=== PATIENT | male | born 1965 | race Caucasian/White ===

== ENCOUNTER → 2025-03-19 | Outpatient (CLI) | payer OTHER, SELFPAY ==
--- NOTE | 2025-03-19 08:51 | US_ITS ---
PROCEDURE: ABD LIMITED W/ ELASTOGRAPHY REASON FOR EXAM: ABN LIVER FUNCTION TESTS COMPARISON: None. TECHNIQUE: Right upper quadrant abdominal ultrasound. Cristela ElastQ Imaging shear wave elastography for non-invasive assessment of liver tissue stiffness. Cristela EPIQ Elite. FINDINGS: LIVER: Length: 15.4 cm Echotexture: Diffusely echogenic suggesting fatty infiltration Contour: Normal Lesions: None identified Elastography: EQI Med: 9.0 kPa EQI Med Justo: 1.71 m/s IQR/Med: 13.9-24.7 %* GALLBLADDER: Normal COMMON BILE DUCT: Normal measuring 6 mm.. PANCREAS: Normal Visualized portions of the right kidney are unremarkable. No right upper quadrant ascites. US/ABD Limited w/ Elastography IMPRESSION: Hepatic steatosis, with [id number] hepatic fibrosis. Reference Values: SRU <1.37 m/s (5.7kPa): No to mild fibrosis 1.37 m/s - 2.2 m/s: Moderate to severe fibrosis >2.2 m/s (15kPa): Significant fibrosis / cirrhosis METAVIR Score F2 or higher: 1.34 m/s (5.7kPa) F3 or higher: 1.55 m/s (7.3kPa) F4: 1.80 m/s (10kPa) * If the IQR/Med is >30%, the variance in the measurements is a large and the a ccuracy of the measurement may be in question. Reading Location: [id number]
--- OUTSIDE RECORDS SUMMARY | 2025-03-19 08:56 | XMS RPT_ITS | CCD ---
Author Organization [facility] Care Team Providers Care Database Design Analyst Name Role Phone Required, No Pcp Unavailable Unavailable Saad Renee Unavailable Unavailable Joe, Karymomo Unavailable Unavailable Víctor, Ms. Saad Tomas Attending Lee Ann Diaz, Ms. Romapumamalcolm Primary Care Unavailab jose Diaz, Ms. Romapumamalcolm Referring Unavailab Ced Hernández Admitting Unavailable Ced Rodriguez Attending Unavailable Joe, Ms. Karyanne Primary Care Unavailab SHARONA Law Attending Unavailabl e JOE, KARYANNE Referring Unavailable JOE, KARYANNE Primary Care Unavailable LI LANDAVERDE Attending Unavailable JOSE, KARYANNE Primary Care Unavailable Jose, Karyanne Referring Unavailable Jose Karyanne Attending Unavailable Jose, Karyanne Primary Care Unavailable Medications Current Medications Medication Drug Class(es) Dates Sig (Normalized) Sig (Original) calcium carbonate 500 mg chewable tablet (1 source) take 1 tablet by nabeel th once daily Tums 500 mg oral tablet, chewable ; 1 tab(s) orally once a day Quantity: 0 Refills: 0 Ordered: 02-Apr-2022 Lisset Talbert Generic Substitution Allowed Completed/Discontinued Medications Medication Drug Class(es) Dates Sig (Normalized) Sig (Original) NEGATED: Highlighted row has not occurred!No Current Medications (1 source) No Current Medic ations Problems Active Problems Problem Classification Problem Date Documented Da te Episodic/Chronic Diabetes mellitus without complication (2 sources) Hyperglycemia, unspecified; Translations: [Hyperglycemia, unspecified] Onset: 12-13-2022 Episodic Immunizations and screening for infectious disease (1 source) Patient encounter status; Translations: [Special screening examination for other specified viral diseases] 09-05-2021 Episodic Other screening for suspected conditions (not mental disorders or infectious disease) (5 sources) Encounter for screening for malignant neoplasm of colon; Translations: [Abnormal results of liver function studies] Onset: 04-05-2022 Episodic Other upper respiratory infections (2 sources) Acute upper respiratory infection; Translations: [Acute upper respiratory infections of unspecified site] 09-05-2021 Episodic Unclassified (2 sources) NO TASTE OR SMELL DIZZY 09-05-2021 Comment on above: NO TASTE OR SMELL DI ZZY Unclassified (1 source) Encounter for screening for COVID-19 09-05-2021 Unclassified (2 sources) WORK PHYSICAL 04-11-2022 Comment on above: WORK PHYSICAL Unclassified (1 source) Physical exam 04-11-2022 Past or Other Problems Problem Classification Problem Date Documented Da te Episodic/Chronic Cardiac dysrhythmias (2 sources) Palpitations; Translations: [Palpitations] Onset: 06-23-2023 Episodic Other lower respiratory disease (2 sources) Shortness of breath; Translations: [Shortness of breath] Onset: 06-23-2023 Episodic Results Test Name Value Interpretation Reference Range Facility Troponin I.cardiac panelon 1 Tropinin I.cardiac panel High sensitivity method 3 ng/L Normal 0-20 [facility] Comment on above: Order Comment: Less than 99th percentile of normal range cutoff- Female and children under 18 years old <14 ng/L; Male <21 ng/L: Negative Repeat testing should be performed if clinically indicated. Female and children under 18 years old 14-50 ng/L; Male 21-50 ng/L: Consistent with possible cardiac damage and possible increased clinical risk. Serial measurements may help to assess extent of myocardial damage. >50 ng/L: Consistent with cardiac damage, increased clinical risk and myocardial infarction. Serial measurements may help assess extent of myocardial damage. NOTE: Children less than 1 year old may have higher baseline troponin levels and results should be interpreted in conjunction with the overall clinical context. NOTE: Troponin I testing is performed using a different testing methodology at [facility] than at other legacy [facility]. Direct result comparisons should only be made within the same method. Performed By: #### 8 9577-1 #### WONG YAIMA ([id number]) [facility] ([facility]) [address] [place] [address] CBC W Auto Differential pane l (Bld)on 06-23-2023 Basophils (Bld) [#/Vol] 0.06 x10*3/uL Normal 0.00-0.10 [facility] Comment on above: Performed By: #### 5 7021-8 #### JUDITH ERWIN ([id number]) [facility] ([facility]) [address] [place] [address] 65391 Basophils/100 WBC (Bld) 0.7 % Normal 0.0-2.0 [facility] Comment on above: Performed By: #### 5 7021-8 #### JUDITH ERWIN ([id number]) [facility] ([facility]) [address] [place] [address] 49235 Eosinophils (Bld) [#/Vol] 0.35 x10*3/uL Normal 0.00-0.70 [facility] Comment on above: Performed By: #### 5 7021-8 #### JUDITH ERWIN ([id number]) [facility] ([facility]) [address] [place] [address] 24182 Eosinophils/100 WBC (Bld) 4.3 % Normal 0.0-6.0 [facility] Comment on above: Performed By: #### 5 7021-8 #### JUDITH ERWIN ([id number]) [facility] ([facility]) [address] [place] [address] 86122 Erythrocyte distribution width (RBC) [Ratio] 12.4 % Normal 11.5-14.5 [facility] Comment on above: Performed By: #### 5 7021-8 #### JUDITH ERWIN ([id number]) [facility] ([facility]) [address] [place] [address] 87373 Hematocrit (Bld) [Volume fraction] 43.7 % Normal 41.0-52.0 [facility] Comment on above: Performed By: #### 5 7021-8 #### JUDITH ERWIN ([id number]) [facility] ([facility]) [address] [place] [address] 14166 Hemoglobin (Bld) [Mass/Vol] 14.9 g/dL Normal 13.5-17.5 [facility] Comment on above: Performed By: #### 5 7021-8 #### JUDITH ERWIN ([id number]) [facility] ([facility]) [address] [place] [address] 84033 Immature granulocytes (Bld) [#/Vol] 0.03 x10*3/uL Normal 0.00-0.70 [facility] Comment on above: Performed By: #### 5 7021-8 #### JUDITH ERWIN ([id number]) [facility] ([facility]) [address] [place] [address] 74172 Immature granulocytes/100 WBC (Bld) 0.4 % Normal 0.0-0.9 [facility] Comment on above: Result Comment: Alycia ture Granulocyte Count (IG) includes promyelocytes, myelocytes and metamyelocytes but does not include bands. Percent differential counts (%) should be interpreted in the context of the absolute cell counts (cells/UL). Performed By: #### 5 7021-8 #### JUDITH ERWIN ([id number]) [facility] ([facility]) [address] [place] [address] 81222 Lymphocytes (Bld) [#/Vol] 2.16 x10*3/uL Normal 1.20-4.80 [facility] Comment on above: Performed By: #### 5 7021-8 #### JUDITH ERWIN ([id number]) [facility] ([facility]) [address] [place] [address] 09736 Lymphocytes/100 WBC (Bld) 26.8 % Normal 13.0-44.0 [facility] Comment on above: Performed By: #### 5 7021-8 #### JUDITH ERWIN ([id number]) [facility] ([facility]) [address] [place] [address] 20431 MCH (RBC) [Entitic mass] 28.9 pg Normal 26.0-34.0 [facility] Comment on above: Performed By: #### 5 7021-8 #### JUDITH ERWIN ([id number]) [facility] ([facility]) [address] [place] [address] 04700 MCHC (RBC) [Mass/Vol] 34.1 g/dL Normal 32.0-36.0 [facility] Comment on above: Performed By: #### 5 7021-8 #### JUDITH ERWIN ([id number]) [facility] ([facility]) [address] [place] [address] 34157 MCV (RBC) [Entitic vol] 85 fL Normal 80-100 [facility] Comment on above: Performed By: #### 5 7021-8 #### JUDITH ERWIN ([id number]) [facility] ([facility]) [address] [place] [address] 58313 Monocytes (Bld) [#/Vol] 0.83 x10*3/uL Normal 0.10-1.00 [facility] Comment on above: Performed By: #### 5 7021-8 #### JUDITH ERWIN ([id number]) [facility] ([facility]) [address] [place] [address] 53296 Monocytes/100 WBC (Bld) 10.3 % Normal 2.0-10.0 [facility] Comment on above: Performed By: #### 5 7021-8 #### JUDITH ERWIN ([id number]) [facility] ([facility]) [address] [place] [address] 82920 Neutrophils (Bld) [#/Vol] 4.62 x10*3/uL Normal 1.20-7.70 [facility] Comment on above: Result Comment: Perc ent differential counts (%) should be interpreted in the context of the absolute cell counts (cells/uL). Performed By: #### 5 7021-8 #### JUDITH ERWIN ([id number]) [facility] ([facility]) [address] [place] [address] 39582 Neutrophils/100 WBC (Bld) 57.5 % Normal 40.0-80.0 [facility] Comment on above: Performed By: #### 5 7021-8 #### JUDITH ERWIN ([id number]) [facility] ([facility]) [address] [place] [address] 43637 Nucleated RBC/100 WBC (Bld) [Ratio] 0.0 /100 WBCs Normal 0.0-0.0 [facility] Comment on above: Performed By: #### 5 7021-8 #### JUDITH ERWIN ([id number]) [facility] ([facility]) [address] [place] [address] 07213 Platelet mean volume (Bld) [Entitic vol] 9.0 fL Normal 7.5-11.5 [facility] Comment on above: Performed By: #### 5 7021-8 #### JUDITH ERWIN ([id number]) [facility] ([facility]) [address] [place] [address] 72162 Platelets (Bld) [#/Vol] 212 x10*3/uL Normal 150-450 [facility] Comment on above: Performed By: #### 5 7021-8 #### JUDITH ERWIN ([id number]) [facility] ([facility]) [address] [place] [address] 26208 RBC (Bld) [#/Vol] 5.15 x10*6/uL Normal 4.50-5.90 [facility] Comment on above: Performed By: #### 5 7021-8 #### JUDITH ERWIN ([id number]) [facility] ([facility]) [address] [place] [address] 56265 WBC (Bld) [#/Vol] 8.1 x10*3/uL Normal 4.4-11.3 [facility] Comment on above: Performed By: #### 5 7021-8 #### JUDITH ERWIN ([id number]) [facility] ([facility]) [address] [place] [address] 59463 Comprehensive metabolic 2000 panelon 06-23-2023 Albumin BCP dye [Mass/Vol] 4.6 g/dL Normal 3.4-5.0 [facility] Comment on above: Performed By: #### 2 4323-8 #### JUDITH ERWIN ([id number]) [facility] ([facility]) [address] [place] [address] 23547 ALP [Catalytic activity/Vol] 52 U/L Normal 33-120 [facility] Comment on above: Performed By: #### 2 4323-8 #### JUDITH ERWIN ([id number]) [facility] ([facility]) [address] [place] [address] ALT With P-5'-P [Catalytic activity/Vol] 21 U/L Normal 10-52 [facility] Comment on above: Result Comment: Donna ents treated with Sulfasalazine may generate falsely decreased results for ALT. Performed By: #### 2 4323-8 #### JUDITH ERWIN ([id number]) [facility] ([facility]) [address] [place] [address] Anion gap [Moles/Vol] 10 mmol/L Normal 10-20 [facility] Comment on above: Performed By: #### 2 4322-8 #### JUDITH ERWIN ([id number]) [facility] ([facility]) [address] [place] [address] AST With P-5'-P [Catalytic activity/Vol] 14 U/L Normal 9-39 [facility] Comment on above: Performed By: #### 2 4322-8 #### JUDITH ERWIN ([id number]) [facility] ([facility]) [address] [place] [address] Bilirubin [Mass/Vol] 0.4 mg/dL Normal 0.0-1.2 [facility] Comment on above: Performed By: #### 2 432-8 #### JUDITH ERWIN ([id number]) [facility] ([facility]) [address] [place] [address] 37767 Calcium [Mass/Vol] 9.7 mg/dL Normal 8.6-10.3 [facility] Comment on above: Performed By: #### 2 4323-8 #### JUDITH ERWIN ([id number]) [facility] ([facility]) [address] [place] [address] Chloride [Moles/Vol] 103 mmol/L Normal 98-107 [facility] Comment on above: Performed By: #### 2 4323-8 #### JUDITH ERWIN ([id number]) [facility] ([facility]) [address] [place] [address] CO2 [Moles/Vol] 31 mmol/L Normal 21-[address] [facility] Comment on above: Performed By: #### 2 4323-8 #### JUDITH ERWIN ([id number]) [facility] ([facility]) [facility] [place] [address] Creatinine [Mass/Vol] 1.14 mg/dL Normal 0.50-1.30 [facility] Comment on above: Performed By: #### 2 4323-8 #### JUDITH ERWIN ([id number]) [facility] ([facility]) [address] [place] [address] 93751 GFR/1.73 sq M.predicted MDRD (S/P/Bld) [Vol rate/Area] 75 mL/min/1.73m*2 Normal >60 [facility] Comment on above: Result Comment: Calc ulations of estimated GFR are performed using the 2020 CKD-EPI Study Refit equation without the race variable for the IDMS-Traceable Creatinine Methods. https://jasn.asnjournals.org/content/early//ASN.80717722 88 Performed By: #### 2 4323-8 #### JUDITH ERWIN ([id number]) [facility] ([facility]) [address] [place] [address] 21123 Glucose [Mass/Vol] 102 mg/dL High 74-99 [facility] Comment on above: Performed By: #### 2 4323-8 #### JUDITH ERWIN ([id number]) [facility] ([facility]) [address] [place] [address] 36348 Potassium [Moles/Vol] 3.6 mmol/L Normal 3.5-5.3 [facility] Comment on above: Performed By: #### 2 4323-8 #### JUDITH ERWIN ([id number]) [facility] ([facility]) [facility] [place] [address] Protein [Mass/Vol] 6.8 g/dL Normal 6.4-8.2 [facility] Comment on above: Performed By: #### 2 4323-8 #### JUDITH ERWIN ([id number]) [facility] ([facility]) [address] [place] [address] 52514 Sodium [Moles/Vol] 140 mmol/L Normal 136-145 [facility] Comment on above: Performed By: #### 2 4323-8 #### JUDITH ERWIN ([id number]) [facility] ([facility]) [address] [place] [address] 22700 Urea nitrogen [Mass/Vol] 18 mg/dL Normal 6-23 [facility] Comment on above: Performed By: #### 2 4323-8 #### JUDITH ERWIN ([id number]) [facility] ([facility]) [address] [place] [address] 45501 Magnesiumon 06-23-2023 Magnesium [Mass/Vol] 2.03 mg/dL Normal 1.60-2.40 [facility] Comment on above: Performed By: #### 1 9123-9 #### JUDITH ERWIN ([id number]) [facility] ([facility]) [address] [place] [address] 80388 Troponin I.cardiac panelon 1 Tropinin I.cardiac panel High sensitivity method 3 ng/L Normal 0-20 [facility] Comment on above: Order Comment: Less than 99th percentile of normal range cutoff- Female and children under 18 years old <14 ng/L; Male <21 ng/L: Negative Repeat testing should be performed if clinically indicated. Female and children under 18 years old 14-50 ng/L; Male 21-50 ng/L: Consistent with possible cardiac damage and possible increased clinical risk. Serial measurements may help to assess extent of myocardial damage. >50 ng/L: Consistent with cardiac damage, increased clinical risk and myocardial infarction. Serial measurements may help assess extent of myocardial damage. NOTE: Children less than 1 year old may have higher baseline troponin levels and results should be interpreted in conjunction with the overall clinical context. NOTE: Troponin I testing is performed using a different testing methodology at [facility] than at other [facility]. Direct result comparisons should only be made within the same method. Performed By: #### 8 9577-1 #### WONG ANA CRISTINALI ([id number]) [facility] ([facility]) [address] [place] [address] XR CHEST 1 VIEWon 06-23-2023 XR CHEST 1 VIEW Interpreted By: Luanne Ibrahim, STUDY: XR CHEST 1 VIEW; 06/23/2023 11:29 pm INDICATION: Signs/Symptoms:Chest Pain. COMPARISON: None. ACCESSION NUMBER(S): [id number] ORDERING CLINICIAN: LI LANDAVERDE FINDINGS: Multiple overlying leads are present. CARDIOMEDIASTINAL SILHOUETTE: Cardiomediastinal silhouette is normal in size and configuration. LUNGS: No consolidation, pleural effusion or pneumothorax. ABDOMEN: No remarkable upper abdominal findings. BONES: No acute osseous abnormality. IMPRESSION: No acute cardiopulmonary process. MACRO: None Signed by: Luanne Ibrahim 06/23/2023 11:55 PM Dictation workstation: [id number] [facility] Provider Note - ED v3on 03-23 Provider Note - ED v3 Provider Note: Chart Review: ED NOTES ED NOTES: Presents for work physical. No previous joint injuries/surgeries. No chronic illnesses or daily meds. No constitutional complaints. HISTORY OF PRESENTING ILLNESS JAVAN is a 56 year old Male and was seen by me at 11-Apr-2022 12:30. Triage Information: Most recent Vital Sign Value Date PAST MEDICAL HISTORY ALLERGIES/INTOLERANCES : No Known Allergies HEALTH HISTORY: No documented data. OUTPATIENT MEDICATIONS: Home Medications Review Status for Reconciliation: N/A Med Status: Patient Currently Takes Medications Drug Name: Tums 500 mg oral tablet, chewable Instructions: 1 tab(s) orally once a day SIGNIFICANT EVENTS: No documented data. REVIEW OF SYSTEMS All other systems reviewed and are negative REVIEW OF SYSTEMS: Comments See HPI PHYSICAL EXAM CONSTITUTIONAL: Well appearing, well nourished, awake, alert, oriented to person, place, time/situation and in no apparent distress. HENMT: Airway patent, ears with clear tympanic membranes bilaterally. Nasal mucosa clear. Mouth with normal mucosa. Throat has no vesicles, no oropharyngeal exudates and uvula is midline. Face with no lymph node enlargement. EYES: Clear bilaterally, pupils equal, round and reactive to light. CARDIOVASCULAR: Normal rate, regular rhythm. Heart sounds S1, S2. No murmurs, rubs or gallops. PMI non-displaced. RESPIRATORY: Breath sounds clear and equal bilaterally. GASTROINTESTINAL: Abdomen soft, non-distended, no rebound, no guarding. Bowel sounds normal in all 4 quadrants. GENITOURINARY: No discharge, no lesions. MUSCULOSKELETAL: Spine appears normal, range of motion is not limited, no muscle or joint tenderness. NEUROLOGICAL: Alert and oriented, no focal deficits, no motor or sensory deficits. SKIN: Skin normal color for race, warm, dry and intact. No evidence of trauma. PSYCHIATRIC: Alert and oriented to person, place, time/situation. normal mood and affect. No apparent risk to self or others. HEME/LYMPH: No adenopathy or splenomegaly. No cervical, supraclavicular or inguinal lymphadenopathy. CRITICAL CARE VITAL SIGNS: T PRBP SpO2O2(LPM) %FiO2 Method 11-Apr-2022 12:24:[id number] 1 97RA MDM MDM/ED COURSE: Discussed Findings with: patient Data Reviewed: vital signs DISPOSITION Diagnosis/Annotation: ED Dx Name:Physical exam Code:Z00.00 Disposition: discharged Type: home CONSULT CRITICAL CARE TIME Is this a critically ill patient: no Electronic Signatures: Saad Renee (FIELD SALES AGENT-QUALITY ASSURANCE CALIBRATOR) (Signed 11-Apr-2022 12:44) Authored: ED Notes, HPI, PMH, ROS, PE, Results/Vital Signs, MDM/ED Course, Clinical Impression, Attestation, Chart Review, Scores Last Updated: 11-Apr-2022 12:44 by Saad Renee (FIELD SALES AGENT-QUALITY ASSURANCE CALIBRATOR) [facility] Colonoscopyon 04-05-2022 Colonoscopy PATIENTNAME Patient Name: Javan Degroot EXAMDATE Procedure Date: 04/05/2022 10:33 AM PATIENTID PATIENTACCOUNTNUM PATIENTDOB Date of : 1965 ADMITTYPE Admit Type: Outpatient PATIENTROOM Site: [facility] 1 ETHNICITY Ethnicity: Not or RACE Race: White PROVDR Attending MD: Ced Rodriguez DO ENDOPROCEDURENAME Procedure: Colonoscopy INDICATION Indications: Screening for colorectal malignant neoplasm PRIMARYPROVIDER Providers: Ced Rodriguez DO (Doctor), Eduarda Corley RN (Nurse), Ravindra Christian RN (Nurse) EDREFPROVIDER Referring: Doctor Unknown CURRENT_MEDS Medicines: Midazolam 7.5 mg IV, Meperidine 50 mg IV COMPLIC Complications: No immediate complications. ENDOPROCEDURETEXT Procedure: Pre-Anesthesia Assessment: - Prior to the procedure, a History and Physical was performed, and patient medications and allergies were reviewed. The patient is competent. The risks and benefits of the procedure and the sedation options and risks were discussed with the patient. All questions were answered and informed consent was obtained. Patient identification and proposed procedure were verified by the physician in the pre-procedure area. Mental Status Examination: alert and oriented. Airway Examination: normal oropharyngeal airway and neck mobility. Respiratory Examination: clear to auscultation. CV Examination: normal. Prophylactic Antibiotics: The patient does not require prophylactic antibiotics. Prior Anticoagulants: The patient has taken no anticoagulant or antiplatelet agents. ASA Grade Assessment: II - A patient with mild systemic disease. After reviewing the risks and benefits, the patient was deemed in satisfactory condition to undergo the procedure. The anesthesia plan was to use moderate sedation / analgesia (conscious sedation). Immediately prior to administration of medications, the patient was re-assessed for adequacy to receive sedatives. The heart rate, respiratory rate, oxygen saturations, blood pressure, adequacy of pulmonary ventilation, and response to care were monitored throughout the procedure. The physical status of the patient was re-assessed after the procedure. After I obtained informed consent, the scope was passed under direct vision. Throughout the procedure, the patient's blood pressure, pulse, and oxygen saturations were monitored continuously. The adult colonoscope was introduced through the anus and advanced to the cecum, identified by appendiceal orifice and ileocecal valve. The colonoscopy was performed without difficulty. The patient tolerated the procedure fairly well. The ileocecal valve, appendiceal orifice, and rectum were photographed. The quality of the bowel preparation was excellent. FINDING Findings: The perianal and digital rectal examinations were normal. Pertinent negatives include normal sphincter tone and no palpable rectal lesions. The entire examined colon appeared normal on direct and retroflexion views. SEDATION Moderate Sedation: Moderate (conscious) sedation was administered by the endoscopy nurse and supervised by the endoscopist. The following parameters were monitored: oxygen saturation, heart rate, blood pressure, and response to care. Total physician intraservice time was 22 minutes. EBL Estimated Blood Loss: Estimated blood loss was minimal. IMPRESS Impression: - The entire examined colon is normal on direct and retroflexion views. - No specimens collected. ENDORECOMMENDATION Recommendation: - Patient has a contact number available for emergencies. The signs and symptoms of potential delayed complications were discussed with the patient. Return to normal activities tomorrow. Written discharge instructions were provided to the patient. - Resume previous diet. - Continue present medications. - Repeat colonoscopy in 10 years for screening purposes. CPT_CODES Procedure Code(s): --- Professional --- 29424, Colonoscopy, flexible; diagnostic, including collection of specimen(s) by brushing or washing, when performed (separate procedure) G0500, Moderate sedation services provided by the same physician or other qualified health youth care professional performing a gastrointestinal endoscopic service that sedation supports, requiring the presence of an independent trained observer to assist in the monitoring of the patient's level of consciousness and physiological status; initial 15 minutes of intra-service time; patient age 5 years or older (additional time may be reported with 57535, as appropriate) ICD_CODES Diagnosis Code(s): --- Professional --- Z12.11, Encounter for screening for malignant neoplasm of colon CODINGSTMT CPT copyright 2020 [employer]. All rights reserved. The codes documented in this report are preliminary and upon lodge officer revie (more content not included)... Normal [facility] CORONAVIRUS 2019 BY PCRon SARS-CoV-2 (COVID-19) RNA SHARONA+probe Ql (Unsp spec) Detected Abnormal Not Detected [facility] Comment on above: Result Comment: . This assay is designed to detect the N, ORF1ab and/or S genes of SARS-CoV-2 via nucleic acid amplification. A Negative (NOT DETECTED) result does not preclude 2019-nCoV infection since the adequacy of sample collection and/or low viral burden may result in presence of viral nucleic acids below the clinical sensitivity of this test method. Negative (NOT DETECTED) result should not be used as the sole basis for treatment or other patient management decisions. Rather negative results should be combined with clinical observations, patient history, and epidemiological information to make patient management decisions. Fact sheet for providers: https://www.fda.gov/media/366807/download Fact sheet for patients: https://www.fda.gov/media/948714/download This test has received FDA Emergency Use Authorization (EUA) and has been verified by [facility] ([facility]). This test is only authorized for the duration of time that circumstances exist to justify the authorization of the emergency use of in vitro diagnostic tests for the detection of SARS-CoV-2 virus and/or diagnosis of COVID-19 infection under section 564(b)(1) of the Act, 21 U.S.C. 360bbb-3(b)(1), unless the authorization is terminated or revoked sooner. [facility] is certified under CLIA-88 as qualified to perform high complexity testing. Testing is performed in the [facility] laboratories located at [address] [place] [address]. Performed By: #### C OV19 #### [address] [place] [address] Covid 19 Resultson 1 SARS-CoV-2 (COVID-19) RNA SHARONA+probe Ql (Unsp spec) POSITIVE COVID-19 Test Coronaviruses are common world-wide and are the cause of many common colds. SARS-COV2 is a new coronavirus that began circulating worldwide in 2019 so we are calling it COVID-19. It has been estimated that four out of five patients with COVID-19 will recover at home without the need for medical attention. Symptoms of COVID-19 may include cough, fever, shortness of breath, loss of taste or smell and other flu-like symptoms including chills, sore muscles, sore throat, and headache. Severe illness is more common in older people and people with other health problems such as high blood pressure, obesity, and immune system problems. If the test is positive, you have COVID-19. You will be contacted by the ordering physicians office and instructed to remain on home isolation, in accordance with CDC guidelines. You may also be contacted by the [facility] to see if any of your close contacts may have been exposed to the virus and need to quarantine. If the test is negative, you likely do not have COVID-19 at this time, but you still may have a different illness that can spread to other people (like Influenza, or the Flu) and could still be at risk for getting COVID-19. We recommend that you stay away from other people to limit the spread of illness until your symptoms are improving and you are fever-free for 24 hours without the use of fever lowering medications such as acetaminophen or ibuprofen. No test is 100% accurate so if you are still concerned you may have COVID-19, talk to your doctor about the need to continue to stay away from others. Medicines Unless your provider told you not to use the following: Acetaminophen (Tylenol and others) is generally safe. Anti-inflammatory medications, such as Ibuprofen (Advil or Motrin) or Naproxen (Aleve) can also be used. Mjts-qni-mbewxpm cough and cold medicines can be used according to the instructions on the package. Some wpza-wiv-innvysh medicines also contain acetaminophen. Make sure you are not taking more than your recommended dose. For those not hospitalized, there is no specific treatment available for this illness. Antibiotics do not treat Coronaviruses. Follow-Up Follow up with your doctor by scheduling a virtual visit or consider follow-up at one of our urgent care fever clinics. If you are having difficulty breathing, or are very weak and having difficulty standing, this is a medical emergency. Call 911 or have someone take you to the nearest emergency room immediately. If possible, wear a facemask. Additional guidance from the CDC for patients who tested POSITIVE for COVID-19 How to isolate: Isolate yourself in a specific room at home and limit your contact with others. Use a separate bathroom from other members of the household, when possible. Leave home only to get essential medical care. Do not go to work, school or public areas. Avoid using public transportation, ride-sharing, or taxis. Restrict contact with pets and other animals. If you must care for your pet or be around animals while you are sick, wash your hands before and after your interaction and wear a facemask. Make sure that shared spaces in the home have good airflow, such as by an air conditioner or an opened window, weather permitting. Personal Hygiene Procedures: Wear a face mask when in the same room as other people or pets. If a face mask interferes with your breathing, others should wear a mask when sharing space with you. Frequent hand-washing: wash your hands with soap and water for at least 20 seconds. If soap and water are not available, use alcohol-based hand curing machine operator. Avoid touching your eyes, nose, and mouth with unwashed hands. Household Hygiene Procedures: Avoid sharing personal household items such as dishes, glassware, cups, eating utensils, towels or bedding with other people or pets in your home. After use, these items should be washed with soap and hot water. Disinfect all high-touch surfaces every day with antibacterial cleaning solutions such as Lysol wipes, bleach, cleansers, etc. High-touch surfaces include tabletops, doorknobs, bathroom fixtures, toilets, phones, keyboards, tablets and bedside tables. Immediately clean any surfaces that may have blood, poop or body fluids on them, using antibacterial cleaning solutions such as Lysol wipes, bleach, cleansers, etc. If clothing or bedding come into contact with blood, poop or body fluids, they should be washed immediately. Follow the directions on the laundry detergent and clothing labels but hot water is recommended when possible. Stopping home isolation precautions: If possible, consult your doctor before stopping home isolation precautions. According to the CDC, you can discontinue home isolation precautions when you have met both of these criteria: Your fever and respiratory symptoms have been gone for 24 danette (more content not included)... Normal [facility] CORONAVIRUS 2019 BY PCRon DATE OF SYMPTOM ONSET [YYYYMMDD]? [id number] Normal [facility] Comment on above: Performed By: #### C OV19 #### [facility] [id number] [place] [address] Lab Specimen Source Nasal, Nasopharyngeal Normal [facility] Comment on above: Performed By: #### C OV19 #### [facility] [address] [place] [address] Vital Signs Date Time Vital Sign Value Performing Clinician Facility 04-11-2022 14:24-040 Body height 168 cm [facility] 04-11-2022 14:24040 Body temperature 97.7 [degF] [facility] 04-11-2022 14:24-040 Diastolic blood pressure 91 mm[Hg] [facility] 04-11-2022 14:24-0400 Heart rate 69 /min Meme Diaz [facility] 04-11-2022 14:24-0400 SaO2% (BldA) [Mass fraction] 97 % Meme Diaz [facility] 04-11-2022 14:24-0400 Systolic blood pressure 156 mm[Hg] Meme Lorder [facility] 09-05-2021 14:18-0500 Body height 168 cm No Pcp Required [facility] 09-05-2021 14:18-0500 Body temperature 97.16 [degF] No Pcp Required [facility] 09-05-2021 14:18-0500 Diastolic blood pressure 93 mm[Hg] No Pcp Required [facility] 09-05-2021 14:18-0500 Heart rate 104 /min No Pcp Required [facility] 09-05-2021 14:18-0500 SaO2% (BldA) [Mass fraction] 98 % No Pcp Required [facility] 09-05-2021 14:18-0500 Systolic blood pressure 129 mm[Hg] No Pcp Required [facility] Encounters Encounter Date Encounter Type Care Provider Facility Start: 03-19-2025 ambulatory Meme Garcia Facility: [facility] Start: 06-23-2023 End: 06-24-2023 Emergency department patient visit LI Yoder [facility] Start: 12-13-2022 End: 12-13-2022 Emergency department patient visit SHARONA THOMAS [facility] Start: 04-11-2022 Encounter for genera l adult medical examination without abnormal findings Ms. Saad Tomas [facility] Start: 04-11-2022 End: 04-11-2022 Emergency department patient visit Saad [facility] Start: 04-11-2022 Physical examination Meme Apolinartanika pratt [facility] Start: 04-05-2022 End: 04-05-2022 ambulatory Ms. Meme Diaz Facility:[id number] Start: 09-05-2021 End: 09-05-2021 Emergency department patient visit Saad [facility] Procedures Date Procedure Procedure Detail Performing Clinician Start: 06-26-2023 Echocardiography LI [facility] Start: 06-24-2023 SERIAL TROPONIN, 1 HOUR LI [facility] Start: 06-24-2023 XR CHEST 1 VIEW LI [facility] Start: 06-24-2023 CBC W Auto Different ial panel - Blood LI [facility] Start: 06-24-2023 Comprehensive metabo lic 2000 panel - Serum or Plasma LI [facility] Start: 06-24-2023 Magnesium [Mass/volu me] in Serum or Plasma LI [facility] Start: 06-24-2023 TROPONIN SERIES- (IN ITIAL, 1 HR) LI [facility] Start: 06-24-2023 ECG 12-LEAD LI [facility] Start: 06-24-2023 INSERT PERIPHERAL IV CH AD AK[facility]IL Plan of Treatment Date Care Activity Detail Author History of colonoscopy History of colonos copy [facility] History of operative procedure on foot History of foot surgery [facility] Payers Date Payer Category Payer Self-pay 2025 Unknown [id number] 2021 Self-pay [id number] 1965 Unknown [id number] [id number] 1965 Unknown [id number] 2.16.8 [id number] 1964 Unknown [id number] [id number]. [id number] 1965 Unknown [id number] 2.16.8 [id number] Unknown Unknown [id number] 2.16.8 [id number] Social History Date Type Detail Facility [facility] Tobacco smoking consumption unknown [facility] Summary Purpose Family History No Family History Records FoundNo Family History Records FoundNo Family History Records FoundNo Family History Records FoundNo Family History Records Found Advance Directives No Advanced Directives Records FoundNo Advanced Directives Records FoundNo Advanced Directives Records FoundNo Advanced Directives Records FoundNo Advanced Directives Records Found Additional Source Comments <item><item> Privacy Markings (unrecogniz ed section and content) Section Author: Eduarda Villalobos PROHIBITION ON REDISCLOSURE OF CONFIDENTIAL INFORMATION This notice accompanies a disclosure of information concerning a client made to you with the consent of such client. Section Author: Eduarda Villalobos PROHIBITION ON REDISCLOSURE OF CONFIDENTIAL INFORMATION This notice accompanies a disclosure of information concerning a client made to you with the consent of such client. (unrecognized sect ion and content) No Status Records FoundNo Status Records FoundNo Status Records FoundNo Status Records FoundNo Status Records Found INFORMATION SOURCE (unrecogn ized section and content) DATE CREATED AUTHOR 05/15/2022 [facility] DATE CREATED AUTHOR AUTHOR'S ORGANIZ ATION 12/15/2022 [facility] DATE CREATED AUTHOR AUTHOR'S ORGANIZ ATION 12/26/2022 [facility] DATE CREATED AUTHOR AUTHOR'S ORGANIZ ATION 05/27/2024 [facility] DATE CREATED AUTHOR AUTHOR'S ORGANIZ ATION 03/12/2025 [facility] FOR RECORDS PERTAINING TO PATIENTS WHO ARE OR HAVE BEEN ENROLLED IN A CHEMICAL DEPENDENCY/SUBSTANCEABUSE PROGRAM, SOME INFORMATION MAY BE OMITTED. This clinical summary was aggregated from multiple sources. Caution should be exercised in using it in the provision of clinical care. This summary normalizes information from multiple sources, and as a consequence, information in this document may materially change the coding, format and clinical context of patient data. In addition, data may be omitted in some cases. CLINICAL DECISIONS SHOULD BE BASED ON THE PRIMARY CLINICAL RECORDS. [facility] [employer] [facility]. provides no warranty or guarantee of the accuracy or completeness of information in this document.
== END | disposition home or self-care (01) ==
LOC: US 08:50
PROVIDERS: PCP Registered Nurse General Practice; Referring Provider Registered Nurse General Practice; Visit Provider Registered Nurse General Practice
DX: R94.5 Abnormal results of liver function studies (principal)
CPT/HCPCS: 76705; 76981